=== PATIENT | female | born 1950 | race African-American/Black ===

== ENCOUNTER → 2016-11-17 | Outpatient (CLI) | payer MEDICARE, OTHER ==
[2016-11-17 13:55] LABS: URINE BILIRUBIN - DIPSTICK NEGATIVE (NEG); URINE BLOOD 1+ (NEG)
[2016-11-17 14:52] LABS: URINE SQUAMOUS CELLS OCC #/hpf (0-5)
[2016-11-17 15:01] LABS: BUN 22 mg/dL (7-18); GFR (ESTIMATED) 63 ML/MIN (59-)
[2016-11-18 09:41] LABS: Creatinine, Urine 98.4 mg/dL (Not Estab.); Microalbumin, Urine 41.8 ug/mL (Not Estab.)
== END ==
LOC: CARL-LAB 10:40
PROVIDERS: Internal Medicine Nephrology
DX: N18.2 Chronic kidney disease, stage 2 (mild) (principal); R80.9 Proteinuria, unspecified; E11.9 Type 2 diabetes mellitus without complications